=== PATIENT | female | born 1975 | race Caucasian/White ===

== ENCOUNTER → 2021-03-25 | Outpatient (CLI) | payer SELFPAY ==
--- NOTE | 2021-03-29 18:23 | SLEEPCENT ---
DATE: 03/25/2021 ORDERED BY: Eunice West RN, ANP Nocturnal polysomnography was performed for evaluation of sleep physiology in this patient with a history of non-restorative sleep. Seven hours and 44 minutes of data were reviewed. There were 363 minutes of sleep identified. Sleep latency was mildly prolonged at 28 minutes. REM sleep was further prolonged at 277 minutes. Sleep architecture showed initial poor progression. Later in the study, there were three REM cycles. Overall sleep efficiency was 79.9%. The electrocardiogram showed a sinus rhythm with an average heart rate of 65 beats per minute. EEG showed some coarsening in the background, alpha intrusion was noted in non-REM stages. No other focal abnormalities were identified and there were normal waveforms for wake and sleep. There was only one obstructive respiratory event identified of 10 seconds in duration or greater. Snoring was noted. Arousals from respiratory events occurred 0.2 times per hour. There was minimal limb activity appreciated. No __ of events. Limb movement arousal index was borderline at 6. Oxygen saturations remained normal throughout the study. IMPRESSION: Normal nocturnal polysomnography with snoring. cc: CARY Patrick
== END ==
LOC: M SLEEP 20:00
PROVIDERS: ATTEND Nurse Practitioner Adult Health
DX: R06.83 Snoring (principal)

== ENCOUNTER → 2022-05-05 | Outpatient (CLI) | payer BC | LOC: M RAD 12:36 | PROVIDERS: ATTEND Physician Assistant | DX: E04.2 Nontoxic multinodular goiter (principal); E07.81 Sick-euthyroid syndrome | CPT/HCPCS: 78012; A9516 ==

== ENCOUNTER → 2023-01-11 | Outpatient (CLI) | payer BC ==
[~2023-01-11] MED LIST: LIDOCAINE 1% MDV 20ML VIAL As Ordered ONE
[2023-01-11 09:50] VITALS: TEMP 97.5
[2023-01-11 11:00] VITALS: BP 187/84; O2SAT 98
== END ==
LOC: M IRPRO 09:09
PROVIDERS: ATTEND Otolaryngology
DX: E04.2 Nontoxic multinodular goiter (principal)

== ENCOUNTER → 2023-07-27 | Outpatient (REF) | payer BC ==
[2023-07-27 17:25] LABS: BASO # 0.1 10^3/uL (0.0-0.2); BASO % 0.8 % (0.0-1.0); EOS # 0.1 10^3/uL (0.0-0.5); EOS % 1.5 % (0.0-3.0); HEMATOCRIT 39.7 % (36.0-47.0); HEMOGLOBIN 12.9 g/dl (12.0-15.5); LYMPH # 1.6 10^3/uL (1.5-5.0); LYMPH % 26.3 % (24.0-44.0); MEAN CORPUSCULAR HEMOGLOBIN 29.5 pg (27.0-33.0); MEAN CORPUSCULAR HGB CONC 32.5 g/dl (32.0-36.5); MEAN CORPUSCULAR VOLUME 90.6 fl (80.0-96.0); MONO # 0.4 10^3/uL (0.0-0.8); MONO % 6.3 % (2.0-8.0); NEUTROPHILS % 64.5 % (36.0-66.0); PLATELET COUNT, AUTOMATED 188 10^3/uL (150-450); RED BLOOD COUNT 4.38 10^6/uL (4.00-5.40); WHITE BLOOD COUNT 6.2 10^3/uL (4.0-10.0)
[2023-07-27 17:26] LABS: BLOOD UREA NITROGEN 9 MG/DL (9-23); CALCIUM LEVEL 9.2 MG/DL (8.5-10.1); CARBON DIOXIDE LEVEL 28 MMOL/L (20-31); CHLORIDE LEVEL 106 MMOL/L (98-107); CREATININE FOR GFR 0.66 MG/DL (0.55-1.30); GLOMERULAR FILTRATION RATE > 60.0 (>58); GLUCOSE, FASTING 91 MG/DL (60-100); POTASSIUM SERUM 4.6 MMOL/L (3.5-5.1); SODIUM LEVEL 139 MMOL/L (136-145)
[2023-07-27 17:28] LABS: FREE T4 0.94 NG/DL (0.89-1.76); TESTOSTERONE 20 NG/DL (14-76); THYROID STIMULATING HORMONE 2.458 uIU/ML (0.55-4.78)
[2023-07-27 17:29] LABS: PROGESTERONE < 0.21 NG/ML
[2023-07-27 17:31] LABS: FREE T3 3.5 PG/ML (2.3-4.2)
== END ==
LOC: M LAB REF 16:32
PROVIDERS: ATTEND Physician Assistant
DX: E04.2 Nontoxic multinodular goiter (principal); Z80.8 Family history of malignant neoplasm of other organs or systems; I10 Essential (primary) hypertension

== ENCOUNTER → 2023-08-14 | Outpatient (CLI) | payer BC | LOC: M RAD 07:35 | PROVIDERS: ATTEND Physician Assistant | DX: R10.12 Left upper quadrant pain (principal) ==

== ENCOUNTER → 2023-11-16 | Outpatient (REF) | payer BC ==
[2023-11-16 17:35] LABS: ALBUMIN 3.7 G/DL (3.2-5.2); ALKALINE PHOSPHATASE 82 U/L (46-116); ALT/SGPT 14 U/L (7.0-40); AST/SGOT < 8 U/L (<34); BILIRUBIN,DIRECT 0.2 MG/DL (<0.4); BILIRUBIN,TOTAL 0.5 MG/DL (0.3-1.2); TOTAL PROTEIN 6.9 G/DL (5.7-8.2)
== END ==
LOC: M LAB REF 16:33
PROVIDERS: ATTEND Physician Assistant
DX: E78.5 Hyperlipidemia, unspecified (principal)

== ENCOUNTER → 2024-01-05 | Outpatient (CLI) | payer BC | LOC: M EKG 13:38 | PROVIDERS: ATTEND Physician Assistant | DX: I10 Essential (primary) hypertension (principal) ==

== ENCOUNTER → 2024-03-01 | Outpatient (REF) | payer BC ==
[2024-03-01 17:34] LABS: ALBUMIN 3.7 G/DL (3.2-5.2); ALKALINE PHOSPHATASE 75 U/L (46-116); ALT/SGPT 13 U/L (7.0-40); AST/SGOT 9 U/L (<34); BILIRUBIN,TOTAL 0.7 MG/DL (0.3-1.2); BLOOD UREA NITROGEN 6 MG/DL (9-23); CALCIUM LEVEL 9.8 MG/DL (8.5-10.1); CARBON DIOXIDE LEVEL 28 MMOL/L (20-31); CHLORIDE LEVEL 106 MMOL/L (98-107); CHOLESTEROL LEVEL 176 MG/DL (<200); CHOLESTEROL RISK RATIO 4.01 (<5); GLOMERULAR FILTRATION RATE > 60.0 (>58); GLUCOSE, FASTING 77 MG/DL (60-100); HDL CHOLESTEROL 43.8 MG/DL (>40); LDL CHOLESTEROL 119.2 MG/DL (<100); NON-HDL-C 132.2 MG/DL; SODIUM LEVEL 136 MMOL/L (136-145); TOTAL PROTEIN 7.3 G/DL (5.7-8.2); TRIGLYCERIDES LEVEL 65 MG/DL (<150)
== END ==
LOC: M LAB REF 16:17
PROVIDERS: ATTEND Physician Assistant
DX: E78.5 Hyperlipidemia, unspecified (principal)